=== PATIENT | male | born 1930 ===

== ENCOUNTER → 2016-07-22 | Day surgery (SDC) | payer MEDICARE, OTHER ==
[~2016-07-22] VITALS: Ht 180.3 cm; Wt 74.6 kg
[~2016-07-22] MED LIST: ASPIRIN EC81 MG PO; BUMETANIDE1 MG PO; BUMEX1 MG PO; CENTRUM SILVER1 TAB PO; COUMADIN ** IA3 MG PO; COUMADIN 4MG **4 MG PO; NATURAL LUTEIN20 MG PO; NORCO 5-325 MG1 TAB PO; NORCO 5-325 TA1 EACH PO; PEPCID AC10 MG PO; PRAVACHOL20 MG PO; PRILOSEC20 MG PO; PROSCAR5 MG PO; ROCALTROL0.5 MCG PO; TOPROL XL100 MG PO; ULORIC40 MG PO; VITAMIN D350000 UNIT PO
--- NOTE | ~2016-07-22 | OR ---
PATIENT'S NAME: AMA CROCKER [facility] AGE: 86 Y [address] ROOM: [place] [address] LOCATION: [facility] – [place] ADMIT DATE: 07/22/2016 OR/Procedure Report DISCHARGE DATE: FAMILY PHYSICIAN: BRONSON REMY MD ATTENDING PHYSICIAN: EDWARD KHAN SURGEON: Edward Khan MD HAMMER ADJUSTER: DATE OF PROCEDURE: 07/22/2016 PREOPERATIVE DIAGNOSIS: End-stage renal disease. POSTOPERATIVE DIAGNOSIS: End-stage renal disease. PROCEDURE: Left arm brachiobasilic AV fistula, first stage. QUALITY REP: OR staff. ANESTHESIA: General. ESTIMATED BLOOD LOSS: 10 mL. OPERATIVE FINDINGS: Good thrill and bruit in the basilic vein fistula. Strong radial and ulnar signal at the end of the case. DESCRIPTION OF PROCEDURE: The patient was brought to the operating room and placed supine on the operating room table, prepped and draped in a sterile manner. Preoperative time-out was performed. The patient received preoperative antibiotics. The patient was placed under general anesthesia. We made a standard incision 2 cm to the proximal antecubital fossa, dissected down the fascia, incised the fascia in a longitudinal manner. Dissected out the brachial artery in a 360-degree fashion. Dissected the basilic vein in a similar fashion. We placed a clip distally and transected it. We gave 5000 units of heparin. We then made an arteriotomy, size of 4 mm, after clamping the artery proximally and distally. We did a standard 6-0 Prolene anastomosis from the vein to the artery. We removed the clamps. There was excellent flow in the vein. There was a strong radial and ulnar signal. There was a strong bruit in the fistula which was confirmed with the use of Doppler. Heparin was reversed with protamine. Deep layers were closed with 2-0 and 3-0 Vicryl. Skin was closed with running 4-0 Monocryl. The patient tolerated the procedure well and transferred to recovery room and home later that day. EDWARD KHAN MD PATIENT'S NAME: AMA CROCKER [facility] AGE: 86 Y [address] ROOM: [place], [place] [address] LOCATION: [facility] [place] ADMIT DATE: 07/22/2016 OR/Procedure Report DISCHARGE DATE: FAMILY PHYSICIAN: BRONSON REMY MD ATTENDING PHYSICIAN: EDWARD KHAN/mario /[id number] d: 07/22/16 233 t: 07/24/16 0928, OPERATIVE SUMMARY
[2016-07-22 08:07] LABS: BASOPHIL % 0.4 %; EOSINOPHIL # 0.3 K/uL (0.0-0.5); EOSINOPHIL % 2.9 %; HEMATOCRIT 35.3 % (33.0-50.0); HEMOGLOBIN 11.6 g/dL (11.0-16.0); IMMATURE GRANULOCYTE % 0.4 %; LYMPHOCYTE # 4.8 K/uL (0.8-4.0); LYMPHOCYTE % 50.1 %; MCH 34.2 pg (27.0-34.0); MCHC 32.9 gm/dL (32.0-36.5); MCV 104.1 fl (83.0-98.0); MONOCYTE # 0.7 K/uL (0.0-1.0); MONOCYTE % 7.5 %; MPV 9.4 fl (9.4-12.4); NEUTROPHIL # (ANC) 3.7 K/uL (1.4-9.0); NEUTROPHIL % 38.7 %; NRBC % 0 /100WBC (0-0.00); PLATELET COUNT 208 K/uL (150-450); RBC 3.39 M/uL (3.50-5.50); RDW-CV 13.3 % (11.9-14.6); WBC 9.6 K/uL (4.0-11.0)
[2016-07-22 08:09] LABS: INR - (THERAPEUTIC) 1.21 (0.92-1.07); PROTIME 12.7 SECONDS (9.8-11.4)
[2016-07-22 08:20] LABS: ALBUMIN 3.7 gm/dL (3.5-5.0); ANION GAP 14.2 (10.0-19.0); CALCIUM 9.3 mg/dL (8.5-10.5); CREATININE 5.8 mg/dL (0.6-1.3); TOTAL BILIRUBIN 0.3 mg/dL (0.0-1.5); TOTAL PROTEIN 6.2 g/dL (6.0-8.4)
[2016-07-22 08:21] LABS: POTASSIUM 4.2 mMol/L (3.7-5.1)
== END ==
LOC: GPOC 07-16 09:00 → GSDC 07:24
PROVIDERS: Surgery Vascular Surgery
DX: I12.0 Hypertensive chronic kidney disease with stage 5 chronic kidney disease or end stage renal disease (principal); N18.6 End stage renal disease; E78.5 Hyperlipidemia, unspecified; Z98.890 Other specified postprocedural states; Z98.49 Cataract extraction status, unspecified eye; Z90.49 Acquired absence of other specified parts of digestive tract; Z87.891 Personal history of nicotine dependence; Z79.82 Long term (current) use of aspirin; Z79.899 Other long term (current) drug therapy
CPT/HCPCS: J0690; J1644; J2720; J7030

== ENCOUNTER → 2016-09-30 | Day surgery (SDC) | payer MEDICARE, OTHER ==
[~2016-09-30] VITALS: Ht 180.3 cm; Wt 78.2 kg
--- NOTE | ~2016-09-30 | OR ---
PATIENT'S NAME: AMA CROCKER [facility] AGE: 86 Y [address] ROOM: [place] [address] LOCATION: [facility] [place] ADMIT DATE: 09/30/2016 OR/Procedure Report DISCHARGE DATE: FAMILY PHYSICIAN: BRONSON REMY MD ATTENDING PHYSICIAN: EDWARD KHAN SURGEON: Edward Khan MD COUNTY ATTORNEY: DATE OF PROCEDURE: 09/30/2016 PREOPERATIVE DIAGNOSIS: Fistula too deep to access. POSTOPERATIVE DIAGNOSIS: Fistula too deep to access. PROCEDURE: Left arm brachiobasilic arteriovenous fistula superficialization. CREDIT ADMINISTRATOR: OR staff. ANESTHESIA: General. ESTIMATED BLOOD LOSS: 10 mL. OPERATIVE FINDINGS: Fistula now located right below the skin. DESCRIPTION OF PROCEDURE: The patient was brought to the operating room, placed supine on the operating table, placed under general anesthesia, and prepped and draped in a sterile manner. Preoperative time-out was performed. The patient received preoperative antibiotics. We used ultrasound to jeni the location of the basilic vein. We then made a vertical incision, dissected down the fascia, incised the fascia in a longitudinal manner, dissected out the basilic vein in a 360-degree fashion all the way to the axilla. We ligated and transected all branches. We then reapproximated the vein to the level of the skin. We reapproximated the deep layers with 2-0 and 3-0 Vicryl. easily accessible the skin. The skin was then closed with interrupted 4-0 nylon. The patient tolerated the procedure well and transferred to the recovery room and home later that day. EDWARD KHAN MD FKM/modl /[id number] d: 09/30/16 2216 t: 10/02/16 0959, OPERATIVE SUMMARY
[2016-09-30 09:25] LABS: BASOPHIL % 0.1 %; EOSINOPHIL # 0.2 K/uL (0.0-0.5); HEMATOCRIT 28.4 % (33.0-50.0); HEMOGLOBIN 9.6 g/dL (11.0-16.0); IMMATURE GRANULOCYTE % 0.3 %; LYMPHOCYTE # 3.9 K/uL (0.8-4.0); LYMPHOCYTE % 53.7 %; MCH 34.9 pg (27.0-34.0); MCHC 33.8 gm/dL (32.0-36.5); MCV 103.3 fl (83.0-98.0); MONOCYTE # 0.6 K/uL (0.0-1.0); MONOCYTE % 8.2 %; MPV 9.3 fl (9.4-12.4); NEUTROPHIL # (ANC) 2.5 K/uL (1.4-9.0); NEUTROPHIL % 34.7 %; NRBC % 0 /100WBC (0-0.00); RBC 2.75 M/uL (3.50-5.50); WBC 7.3 K/uL (4.0-11.0)
[2016-09-30 09:29] LABS: PLATELET COUNT 138 K/uL (150-450)
[2016-09-30 09:34] LABS: INR - (THERAPEUTIC) 1.21 (0.92-1.07); PROTIME 12.7 SECONDS (9.8-11.4)
[2016-09-30 09:42] LABS: ALBUMIN 3.3 gm/dL (3.5-5.0); ANION GAP 14.8 (10.0-19.0); POTASSIUM 3.8 mMol/L (3.7-5.1); TOTAL PROTEIN 5.7 g/dL (6.0-8.4)
[2016-09-30 09:44] LABS: CALCIUM 7.3 mg/dL (8.5-10.5); CREATININE 4.3 mg/dL (0.6-1.3); TOTAL BILIRUBIN 0.4 mg/dL (0.0-1.5)
== END | disposition disaster alternative care site (69) ==
LOC: GPOC 09-27 10:00 → GSDC 08:28 → GPOC 08:30
PROVIDERS: Surgery Vascular Surgery
DX: I12.0 Hypertensive chronic kidney disease with stage 5 chronic kidney disease or end stage renal disease (principal); N18.6 End stage renal disease; I25.10 Atherosclerotic heart disease of native coronary artery without angina pectoris; E78.00 Pure hypercholesterolemia, unspecified; E78.5 Hyperlipidemia, unspecified; Z87.891 Personal history of nicotine dependence; Z95.810 Presence of automatic (implantable) cardiac defibrillator; Z95.1 Presence of aortocoronary bypass graft; Z98.890 Other specified postprocedural states; Z98.41 Cataract extraction status, right eye; Z98.42 Cataract extraction status, left eye; Z79.891 Long term (current) use of opiate analgesic; Z79.82 Long term (current) use of aspirin; Z79.01 Long term (current) use of anticoagulants; Z79.899 Other long term (current) drug therapy
CPT/HCPCS: J0690; J2001; J3010; J3475; J7030

== ENCOUNTER → 2016-10-13 | Outpatient (CLI) | payer MEDICARE, OTHER ==
[2016-10-13 09:55] LABS: INR - (THERAPEUTIC) 3.01 (0.92-1.07)
== END | disposition disaster alternative care site (69) ==
LOC: LCNC 09:35
PROVIDERS: Internal Medicine Interventional Cardiology
DX: I48.0 Paroxysmal atrial fibrillation (principal)